=== PATIENT | female | born 1955 | race Caucasian/White ===

== ENCOUNTER 2017-07-26 08:54 | Outpatient (CLI) | payer BC | END 2017-07-26 08:55 | disposition home or self-care (01) | LOC: BICRAD 08:54 | PROVIDERS: ATTEND Nurse Practitioner Family | DX: R05 Cough (principal) | CPT/HCPCS: 71046 ==

== ENCOUNTER 2017-12-30 06:58 | Outpatient (CLI) | payer BC ==
[2017-12-28 13:18] VITALS: BMI 35.5
[2017-12-30 07:52] VITALS: BP 144/90; TEMP 97.4
--- NOTE | 2017-12-30 09:29 | RAD ---
LUMBAR SPINE MYELOGRAM: INDICATION: Low back pain and lumbar radiculopathy. RADIATION EXPOSURE DATA: 0.2 minutes intermittent fluoroscopy, 231 mGy*cm^2. PROCEDURE: Informed consent was obtained, and the patient was transferred to the interventional suite. Spinning Lathe Operator Hydraulic im aging was performed prior to the procedure. The patient was then placed into a prone position, and the low back was prepped and draped in the sta ndard sterile fashion. Topical anesthesia was achieved with 1% lidocaine buffered with sodium bicarb cris. Using a 22 gauge needle, uneventful access was obtained into the thecal sac from an right int erlaminar approach at the L2-3 level. Clear color CSF was noted at the needle hub. Subsequently, 9 cc Isovue M200 was instilled into the thecal sac. This was performed under real-time fluoroscopy wit h appropriate contrast opacification of the thecal sac demonstrated during the exam with adequate con trast opacification achieved. The needle was removed. The patient tolerated the procedure well with out evidence of complication. The patient was then transferred to CT Department to undergo further i maging. Please reference separate CT myelogram for additional details. IMPRESSION: Technically successful lumbar spine myelogram. POS: [facility]
--- NOTE | 2017-12-30 10:22 | RAD ---
LUMBAR SPINE TWO VIEWS: HISTORY: Low back pain. TECHNIQUE: This exam includes lateral flexion and extension views. Frontal and neutral views are not included. FINDINGS: Vertebral body heights are maintained. There is 0.6 cm retrolisthesis at the L2-L3 level that does n ot change from flexion to extension. Alignment is otherwise within normal limits. Osteophytosis thr oughout the vertebral bodies and facets. IMPRESSION: Lumbar spondylosis. POS: [facility]
--- NOTE | 2017-12-31 07:15 | CT ---
CT LUMBAR SPINE WITH CONTRAST: CT LUMBAR MYELOGRAM: CLINICAL HISTORY: Low back pain. Left side lower extremity radiculopathy with pain. Weakness. Difficulty ambulating. COMPARISON: No prior imaging available. FINDINGS: The incidentally imaged retroperitoneum reveals scattered vascular calcification and colonic divertic ulosis. There are also scattered splenic calcifications, incompletely assessed, which may relate to granulomas. There is incidental note of osseous degenerative change of the partially imaged pelvic o sseous structures. Multilevel moderate bilateral degenerative facet hypertrophy is present. There is mild retrolisthesis of L2 on L3 with associated disk space narrowing and gas vacuum phenomen on. Multilevel marginal osteophyte formation is present. There is endplate sclerosis, degenerative in etiology, involving the inferior L2 segment. The conus medullaris is normal in morphology and terminates at the L1 level. L5-S1: A broad-based disk osteophyte is present with mild effacement of the ventral aspect of the te rminal thecal sac. There is moderate right and mild left neural foraminal narrowing. L4-L5: Broad-based disk osteophyte effaces the ventral thecal sac without high grade central canal s tenosis. There is mild to moderate right and mild left neural foraminal narrowing. L3-L4: Broad-based disk osteophyte is present with mild to moderate central canal stenosis. There i s mild bilateral neural foraminal narrowing. L2-L3: Broad-based disk osteophyte is present with mild to moderate central canal stenosis. Mild bi lateral neural foraminal narrowing is present. L1-L2: Mild disk osteophyte complex effaces the ventral thecal sac without high grade central canal stenosis. No significant foraminal stenosis. IMPRESSION: There are multilevel degenerative changes throughout the lumbar spine, as outlined above. POS: [facility]
== END 2017-12-30 10:15 | disposition home or self-care (01) ==
LOC: RAD 06:58
PROVIDERS: ATTEND Neurological Surgery
DX: M47.26 Other spondylosis with radiculopathy, lumbar region (principal)
CPT/HCPCS: 62304; 72100; 72132

== ENCOUNTER 2018-04-08 15:57 | Outpatient (CLI) | payer BC | END 2018-04-08 15:58 | disposition home or self-care (01) | LOC: BICMAMMO 15:57 | PROVIDERS: ATTEND Specialist | DX: Z12.31 Encounter for screening mammogram for malignant neoplasm of breast (principal); R92.1 Mammographic calcification found on diagnostic imaging of breast | CPT/HCPCS: 77063; 77067 ==

== ENCOUNTER 2018-06-28 12:38 | Outpatient (CLI) | payer BC ==
--- NOTE | 2018-06-28 14:19 | RAD ---
PA AND LATERAL CHEST: History: Dyspnea. FINDINGS: Heart size is upper limits of normal. Mediastinal structures are unremarkable. The lungs are clear of infiltrates. No significant bony findings. IMPRESSION: Heart size upper limits of normal. POS: [facility]
== END 2018-06-28 12:39 | disposition home or self-care (01) ==
LOC: RAD 12:38
PROVIDERS: ATTEND Internal Medicine
DX: R06.00 Dyspnea, unspecified (principal)
CPT/HCPCS: 71046

== ENCOUNTER 2019-04-20 11:39 | Outpatient (CLI) | payer BC, SELFPAY ==
--- NOTE | 2019-04-20 12:44 | MMO ---
Bilateral MAMMO Bilat Screen [facility]. CLINICAL HISTORY: Patient is 64 years old and is seen for screening. The patient has no family history of breast cancer. The patient has no personal history of cancer. The patient has a history of bilateral Breast reduction in 1990. VIEWS: The views performed were: bilateral craniocaudal with tomosynthesis and bilateral mediolateral oblique with tomosynthesis. FILMS COMPARED: The present examination has been compared to prior imaging studies performed at [facility] on 10/23/2014, 11/18/2015, 11/18/2016 and 04/08/2018. This study has been interpreted with the assistance of computer-aided detection. MAMMOGRAM FINDINGS: There are scattered fibroglandular densities. There are no suspicious masses, suspicious calcifications, or new areas of architectural distortion. IMPRESSION: THERE IS NO MAMMOGRAPHIC EVIDENCE OF MALIGNANCY. A ROUTINE FOLLOW-UP MAMMOGRAM IN 1 YEAR IS RECOMMENDED. THE RESULTS OF THIS EXAM WERE SENT TO THE PATIENT. ACR BI-RADS Category 1 - Negative MAMMOGRAPHY NOTE: 1. A negative mammogram report should not delay a biopsy if a dominant of clinically suspicious mass is present. 2. Approximately 10% to 15% of breast cancers are not detected by mammography. 3. Adenosis and dense breasts may obscure an underlying neoplasm. Reported by: LORE GALVEZ MD Electonically Signed: [id number]
== END 2019-04-20 11:40 | disposition home or self-care (01) ==
LOC: BICMAMMO 11:39
PROVIDERS: ATTEND Specialist
DX: Z12.31 Encounter for screening mammogram for malignant neoplasm of breast (principal)
CPT/HCPCS: 77063; 77067

== ENCOUNTER 2019-05-30 08:51 | Day surgery (SDC) | payer BC ==
[2019-05-29 08:40] VITALS: BMI 36.1
[~2019-05-30 08:51] MED LIST: EPINEPHrine 0.3 MG in Ophthalmic Irrigation Solution 500 ML IRR SCH
[2019-05-30] MEDS ORDERED: Phenylephrine 2.5% Ophth Soln 5 ML BOT ONE (10:02)
[2019-05-30] MEDS ORDERED: Cyclopentolate 1% Opth Drop 2 ML BOT ONE (10:02)
[2019-05-30] MEDS ORDERED: Triamcinolone 40 MG/ML VIAL ONE (10:41)
[2019-05-30] MEDS ORDERED: CEFAZOLIN 1 GM VIAL ONE (10:41)
[2019-05-30] MEDS ORDERED: Lidocaine 4% PF 5 ML AMP ONE (10:41)
[2019-05-30] MEDS ORDERED: Maxitrol 0.1% Opth Oint 3.5 GM TUBE ONE (10:41)
[2019-05-30] MEDS ORDERED: Lidocaine 1% PF 5 ML VIAL ONE ×2 (10:41)
[2019-05-30] MEDS ORDERED: Bupivacaine PF 0.75% SDV 10 ML ONE (10:41)
[2019-05-30] MEDS ORDERED: Midazolam HCl 2 mg/2 ml Vial ONE (11:05)
[2019-05-30] MEDS ORDERED: Fentanyl 100 MCG/2 ML VIAL ONE (12:23)
[2019-05-30] MEDS ORDERED: PROPOFOL 20 ML ONE (12:24)
[2019-05-30] MEDS ORDERED: Lidocaine 2% PF 5 ML VIAL ONE (12:24)
--- NOTE | 2019-05-30 15:18 | OP ---
DATE OF PROCEDURE: 05/30/2019 PRINCIPAL PREOPERATIVE DIAGNOSIS: Vitreomacular traction, right eye. POSTOPERATIVE DIAGNOSIS: Vitreomacular traction, right eye. NAME OF PROCEDURES PERFORMED: 1. 25-gauge pars plana vitrectomy, right eye. 2. Membrane peel, right eye. ESTIMATED BLOOD LOSS: None. SPECIMENS REMOVED: None. COMPLICATIONS: None. ANESTHESIA: MAC with retrobulbar block. SUMMARY OF OPERATION: The patient was identified in the preoperative holding area, where the correct eye being the right eye was marked for surgery. The patient was taken to the operating room, where MAC anesthesia was induced. A retrobulbar block was administered to the right eye. The block consisted of 1:1 ratio of 4% lidocaine and 0.75% Marcaine. A total of 5 mL was administered. The right eye was then prepped and draped in the usual sterile ophthalmic fashion for surgery. A wire-clip lid speculum was placed. A standard 25-gauge pars plana vitrectomy platform was fashioned with trocars placed approximately 4 mm from the limbus. The infusion was noted to be within the vitreous cavity prior to being turned on to an infusion pressure of 30 mmHg. The light pipe and microvitrector were introduced in the eye under visualization of the BIOM viewing system. A careful core vitrectomy was performed followed by injection of Kenalog. A subsequent gentle posterior vitreous detachment was created with flow progressive peeling across the macula, which allowed for relaxation of the macula. Following posterior vitreous detachment, a peripheral shave vitrectomy was performed. A 360-degree scleral depressed exam of the periphery revealed no defects. The cannulas were sequentially removed. All sclerotomies were noted to be watertight. Subconjunctival Ancef and Kenalog were injected. The wire-clip lid speculum was removed followed by application of Tobradex ophthalmic ointment and a light patch and shield. The patient tolerated the procedure well and was taken to the outpatient recovery area in good condition. Job ID: [id number]
== END 2019-05-30 14:25 | disposition home or self-care (01) ==
LOC: SDC 08:51
PROVIDERS: ATTEND Ophthalmology Retina Specialist
PROC: 08NE3ZZ Release Right Retina, Percutaneous Approach (ICD-10-PCS; principal; 2019-05-30)
PROC: 08T43ZZ Resection of Right Vitreous, Percutaneous Approach (ICD-10-PCS; principal; 2019-05-30)
DX: H43.821 Vitreomacular adhesion, right eye (principal); Z79.899 Other long term (current) drug therapy; Z88.2 Allergy status to sulfonamides; Z88.8 Allergy status to other drugs, medicaments and biological substances
CPT/HCPCS: J0171; J2001; J2250; J2704; J3010

== ENCOUNTER 2020-09-26 10:51 | Outpatient (CLI) | payer MEDICARE | END 2020-09-26 10:52 | disposition home or self-care (01) | LOC: BICMAMMO 10:51 | PROVIDERS: ATTEND Specialist | DX: Z12.31 Encounter for screening mammogram for malignant neoplasm of breast (principal); Z98.82 Breast implant status | CPT/HCPCS: 77063; 77067 ==

== ENCOUNTER 2021-01-23 09:38 | Day surgery (SDC) | payer MEDICARE, OTHER ==
[2021-01-22 11:33] VITALS: BMI 35.1
[2021-01-23] MEDS ORDERED: Midazolam HCl 2 mg/2 ml Vial ONE (10:32)
[2021-01-23] MEDS ORDERED: Fentanyl 100 MCG/2 ML VIAL ONE ×2 (11:16→13:46)
[2021-01-23] MEDS ORDERED: Lidocaine 1% w/Epinephrine 1:100K 20 ML VIAL ONE (11:22)
[2021-01-23] MEDS ORDERED: Bupivacaine 0.25% HCL 30 ML VIAL ONE (11:22)
[2021-01-23] MEDS ORDERED: Famotidine/PF 20 mg/2ml Vial ONE (11:39)
[2021-01-23] MEDS ORDERED: PROPOFOL 200 MG/20 ML VIAL ONE (11:45)
[2021-01-23] MEDS ORDERED: Glycopyrrolate 0.2 MG/ML 5 ML SYRINGE ONE (11:45)
[2021-01-23] MEDS ORDERED: Ketorolac Tromethamine 30 MG/ML VIAL ONE (11:45)
[2021-01-23] MEDS ORDERED: Rocuronium Bromide 10 MG/ML (10ML VIAL) ONE (11:45)
[2021-01-23] MEDS ORDERED: Lidocaine 1% PF 5 ML VIAL ONE (11:45)
[2021-01-23] MEDS ORDERED: Dexamethasone 20 MG/5 ML VIAL ONE (11:45)
[2021-01-23] MEDS ORDERED: Ondansetron PF 4 MG/2 ML Vial ONE ×2 (11:45→15:58)
[2021-01-23] MEDS ORDERED: HYDROmorphone 2 MG/ML VIAL ONE (12:46)
== END 2021-01-23 16:50 | disposition home or self-care (01) ==
LOC: SDC 09:38
PROVIDERS: ATTEND Surgery
PROC: 0FT44ZZ Resection of Gallbladder, Percutaneous Endoscopic Approach (ICD-10-PCS; principal; 2021-01-23)
DX: K80.10 Calculus of gallbladder with chronic cholecystitis without obstruction (principal); E03.9 Hypothyroidism, unspecified; I10 Essential (primary) hypertension; E78.5 Hyperlipidemia, unspecified; G47.33 Obstructive sleep apnea (adult) (pediatric); F17.210 Nicotine dependence, cigarettes, uncomplicated; Z86.010 Personal history of colon polyps; Z79.899 Other long term (current) drug therapy; Z88.2 Allergy status to sulfonamides; Z88.8 Allergy status to other drugs, medicaments and biological substances
CPT/HCPCS: 88304; J0690; J1100; J1170; J1885; J2250; J2405; J2704; J3010; S0020; S0028

== ENCOUNTER 2021-02-18 12:26 | Outpatient (CLI) | payer MEDICARE, OTHER | END 2021-02-18 12:27 | disposition home or self-care (01) | LOC: BICRAD 12:26 | PROVIDERS: ATTEND Surgery | DX: R10.9 Unspecified abdominal pain (principal) | CPT/HCPCS: 74019 ==

== ENCOUNTER 2021-09-29 08:52 | Outpatient (CLI) | payer MEDICARE, OTHER | END 2021-09-29 08:53 | disposition home or self-care (01) | LOC: BICMAMMO 08:52 | PROVIDERS: ATTEND Specialist | DX: Z12.31 Encounter for screening mammogram for malignant neoplasm of breast (principal); Z98.890 Other specified postprocedural states | CPT/HCPCS: 77063; 77067 ==

== ENCOUNTER 2022-12-23 09:59 | Outpatient (CLI) | payer MEDICARE, OTHER ==
[2022-12-23 10:58] LABS: #Eosinphils 0.1 10x3/uL (0.0-0.5); #Monocytes 0.6 10x3/uL (0.0-1.1); #Neutrophils 3.2 10x3/uL (1.5-8.4); %Basophils 0.5 % (0.0-2.0); %Eosinophils 2.1 % (0.0-6.0); %Lymphocytes 30.8 % (18.0-47.0); %Neutrophils 56.3 % (40.0-75.0); Hemoglobin 13.8 g/dL (12.0-15.5); Mean Corpuscular HGB CONC 33.3 g/dL (32.0-36.0); Mean Corpuscular Hemoglobin 29.6 pg (27.0-33.0); Mean Corpuscular Volume 89.1 fl (81.6-98.3); Mean Platelet Volume 10.1 fl (7.4-10.4); Platelet Count 226 10x3/uL (150-450); RBC Distribution Width 12.3 % (11.5-14.5); Red Blood Cell (RBC) Count 4.66 10x6/uL (3.90-5.03); White Blood Cell (WBC) Count 5.7 10x3/uL (3.5-10.5)
[2022-12-23 11:19] LABS: Anion Gap 17 mmol/L (10-20); BUN (Urea Nitrogen) 16 mg/dL (9.8-20.1); Calc. Creatinine Clearance 0 mL/min (70-130); Calcium 9.8 mg/dL (7.8-10.44); Carbon Dioxide 23 mmol/L (23-31); Chloride 105 mmol/L (98-107); Estimated GFR 71; Glucose 85 mg/dL (80-115); Potassium 3.9 mmol/L (3.5-5.1); Sodium 141 mmol/L (136-145)
== END 2022-12-23 10:00 | disposition home or self-care (01) ==
LOC: LABBT 09:59
PROVIDERS: ATTEND Surgery
DX: Z01.818 Encounter for other preprocedural examination (principal); K64.8 Other hemorrhoids
CPT/HCPCS: 80048; 85025; 93005; 93010

== ENCOUNTER 2022-12-29 09:54 | Day surgery (SDC) | payer MEDICARE, OTHER ==
[2022-12-23 10:34] VITALS: BMI 34.2
[2022-12-29] MEDS ORDERED: cefOXitin 2 GM VIAL ONE (12:28)
[2022-12-29] MEDS ORDERED: Sodium Chloride 0.9% 100 ML ONE (12:28)
[2022-12-29] MEDS ORDERED: EPINEPHrine 1 MG/ML AMP ONE (12:33)
[2022-12-29] MEDS ORDERED: Bupivacaine 0.25% HCL 30 ML VIAL ONE (12:33)
[2022-12-29] MEDS ORDERED: Lidocaine 2% 6 ML (Jelly) SYR ONE (12:41)
[2022-12-29] MEDS ORDERED: Lidocaine 2% PF 5 ML VIAL ONE (12:41)
[2022-12-29] MEDS ORDERED: fentaNYL PF 100 MCG/2 ML SYRINGE ONE (12:54)
[2022-12-29] MEDS ORDERED: PROPOFOL 200 MG/20 ML VIAL ONE (13:00)
[2022-12-29] MEDS ORDERED: Rocuronium Bromide 10 MG/ML (10ML VIAL) ONE (13:00)
[2022-12-29] MEDS ORDERED: Lidocaine 1% PF 5 ML VIAL ONE (13:00)
[2022-12-29] MEDS ORDERED: Ondansetron PF 4 MG/2 ML Vial ONE (13:00)
[2022-12-29] MEDS ORDERED: PHENYLEPHRINE-NS 100 MCG/ML 10 ML SYRINGE ONE (13:00)
[2022-12-29] MEDS ORDERED: Dexamethasone 20 MG/5 ML VIAL ONE (13:00)
[2022-12-29] MEDS ORDERED: fentaNYL 50 mcg/mL 1 mL Vial ONE (14:10)
== END 2022-12-29 15:48 | disposition home or self-care (01) ==
LOC: SDC 09:54
PROVIDERS: ATTEND Surgery
PROC: 06BY0ZC Excision of Hemorrhoidal Plexus, Open Approach (ICD-10-PCS; principal; 2022-12-29)
DX: K64.8 Other hemorrhoids (principal); E03.9 Hypothyroidism, unspecified; I10 Essential (primary) hypertension; F41.9 Anxiety disorder, unspecified; E78.5 Hyperlipidemia, unspecified; G47.33 Obstructive sleep apnea (adult) (pediatric); F17.210 Nicotine dependence, cigarettes, uncomplicated; Z79.890 Hormone replacement therapy; Z79.899 Other long term (current) drug therapy; Z79.82 Long term (current) use of aspirin; Z86.73 Personal history of transient ischemic attack (TIA), and cerebral infarction without residual deficits; Z90.710 Acquired absence of both cervix and uterus; Z90.89 Acquired absence of other organs; Z88.2 Allergy status to sulfonamides; Z88.8 Allergy status to other drugs, medicaments and biological substances
CPT/HCPCS: 46947; J3010; 88304; J0171; J0694; J1100; J2001; J2405; J2704; J3490; S0020

== ENCOUNTER 2023-11-02 15:43 | Outpatient (CLI) | payer MEDICARE, OTHER ==
[2023-11-02 17:02] LABS: #Basophils 0.01 10x3/uL (0.0-0.2); #Eosinphils 0.01 10x3/uL (0.0-0.5); #Monocytes 0.09 10x3/uL (0.0-1.1); #Neutrophils 4.65 10x3/uL (1.5-8.4); %Basophils 0.2 % (0.0-2.0); %Eosinophils 0.2 % (0.0-6.0); %Monocytes 1.6 % (0.0-10.0); %Neutrophils 81.6 % (40.0-75.0); Hemoglobin 14.1 g/dL (12.0-15.5); Mean Corpuscular HGB CONC 35.3 g/dL (32.0-36.0); Mean Corpuscular Hemoglobin 30.7 pg (27.0-33.0); Mean Platelet Volume 10.3 fL (7.4-10.4); Platelet Count 265 10x3/uL (150-450); RBC Distribution Width 11.4 % (11.5-14.5); White Blood Cell (WBC) Count 5.7 10x3/uL (3.5-10.5)
[2023-11-02 17:47] LABS: ALT (SGPT) 22 U/L (8-55); AST (SGOT) 19 U/L (5-34); Albumin 4.6 g/dL (3.4-4.8); Alkaline Phosphatase 67 U/L (40-110); Anion Gap 16 mmol/L (10-20); BUN (Urea Nitrogen) 18 mg/dL (9.8-20.1); Bilirubin, Total 0.3 mg/dL (0.2-1.2); Calc. Creatinine Clearance 0 mL/min (70-130); Calcium 10.2 mg/dL (7.8-10.44); Carbon Dioxide 22 mmol/L (23-31); Chloride 108 mmol/L (98-107); Estimated GFR 67; Globulin 2.7 g/dL (2.4-3.5); Glucose 147 mg/dL (80-115); Potassium 3.8 mmol/L (3.5-5.1); Protein, Total 7.3 g/dL (5.8-8.1); Sodium 142 mmol/L (136-145)
== END 2023-11-02 15:44 | disposition home or self-care (01) ==
LOC: LABBT 15:43
PROVIDERS: ATTEND Surgery
DX: Z01.818 Encounter for other preprocedural examination (principal); R22.32 Localized swelling, mass and lump, left upper limb
CPT/HCPCS: 80053; 85025; 93005; 93010

== ENCOUNTER 2024-05-09 09:39 | Outpatient (CLI) | payer MEDICARE, OTHER | END 2024-05-09 09:40 | disposition home or self-care (01) | LOC: BICMAMMO 09:39 | PROVIDERS: ATTEND Family Medicine | DX: Z78.0 Asymptomatic menopausal state (principal) | CPT/HCPCS: 77080 ==